=== PATIENT | male | born 1980 | race Caucasian/White ===

== ENCOUNTER 2019-07-10 07:11 | Day surgery (SDC) | payer BC ==
[~2019-07-10 07:11] MED LIST: EPINEPHrine 1 MG/ML SDV SCH; Lactated Ringers 1,000 ML IV SCH; Lidocaine 1%/Sod Bicarbonate in NS 8.4% 1 ML Syringe IDERM PRN; Sodium Chloride 0.9% 10 ML Syringe FLUSH PRN
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
[2019-07-10] MEDS ORDERED: Ondansetron 4 MG/2 ML SDV ONE (07:51)
[2019-07-10] MEDS ORDERED: Rocuronium 50 MG/5 ML Vial ONE (07:51)
[2019-07-10] MEDS ORDERED: fentaNYL 250 MCG/5 ML SDV ONE ×2 (07:51→09:42)
[2019-07-10] MEDS ORDERED: Propofol 200 MG/20 ML SDV ONE (07:51)
[2019-07-10] MEDS ORDERED: Midazolam 1 MG/ML 2 ML SDV ONE (07:51)
[2019-07-10] MEDS ORDERED: Lidocaine 1% 4 ML ONE (07:52)
[2019-07-10] MEDS ORDERED: ceFAZolin 1 GM Vial ONE (07:52)
[2019-07-10] MEDS ORDERED: Bupivacaine 0.25% 10 ML SDV ONE (07:58)
[2019-07-10] MEDS ORDERED: EPINEPHrine 1 MG/ML 30 ML MDV IRR SCH (08:00)
[2019-07-10] MEDS ORDERED: Lactated Ringers 1,000 ML ONE (09:28)
[2019-07-10] MEDS ORDERED: HYDROmorphone 0.5 MG/0.5 ML Syringe ONE ×2 (09:40→09:41)
[2019-07-10] MEDS ORDERED: fentaNYL 100 MCG/2 ML SDV IVPUSH PRN (10:26)
--- NOTE | 2019-07-10 10:28 | PCM.POSTAN ---
POST ANESTHESIA ASSESSMENT - MENTAL STATUS Mental Status: Alert, Oriented - VITAL SIGNS Vital Signs: Last Vital Signs Temp 36.6 C 07/10/19 07:15 Pulse 62 07/10/19 07:15 Resp 16 07/10/19 07:15 BP 144/106 H 07/10/19 07:15 Pulse Ox 94 L 07/10/19 07:15 - RESPIRATORY Respiratory Status: Respiratory Rate WNL, Airway Patent, O2 Saturation Stable, Supplemental Oxygen - CARDIOVASCULAR CV Status: Pulse Rate WNL, Blood Pressure Stable - GASTROINTESTINAL GI Status: No Symptoms - PAIN Pain Score: 2 - POST OP HYDRATION Hydration Status: Adequate & Stable - OBSERVATIONS Free Text/Narrative:: no anesthesia complications noted
[2019-07-10] MEDS ORDERED: Loratadine 10 MG Tab PO ONE (10:45)
[2019-07-10] MEDS ORDERED: Acetaminophen/HYDROcodone 325-5 MG Tab PO PRN (11:02)
[2019-07-10 12:52] VITALS: BP 120/88; PULSE 62
--- NOTE | 2019-07-10 13:13 | PCM48HPAN ---
Post Anesthesia Note - EVALUATION WITHIN 48HRS OF ANESTHETIC Vital Signs in Normal Range: Yes Patient Participated in Evaluation: No (discharged ) Respiratory Function Stable: Yes Airway Patent: Yes Cardiovascular Function Stable: Yes Hydration Status Stable: Yes Pain Control Satisfactory: Yes Nausea and Vomiting Control Satisfactory: Yes Mental Status Recovered: Yes Vital Signs: Last Vital Signs Temp 98.3 F 07/10/19 12:00 Pulse 62 07/10/19 12:00 Resp 16 07/10/19 12:00 BP 120/88 07/10/19 12:00 Pulse Ox 92 L 07/10/19 12:00
--- NOTE | 2019-07-16 12:37 | PCM.OPNOTE ---
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
--- NOTE | 2019-07-16 13:45 | OR ---
DATE OF OPERATION: 07/10/2019 SURGEON: Matias Hernandez MD OPERATION PERFORMED: Right knee video arthroscopy with partial medial and lateral meniscectomy with partial synovectomy and chondroplasty of the patella. PREOPERATIVE DIAGNOSIS: Right knee medial and lateral meniscus tear. 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 ANESTHESIA: General LMA with local. ANESTHESIA PROVIDER: Jasiel Stevens. ASSISTANTS: Cari Pineda PA-C ESTIMATED BLOOD LOSS: Less than 5 mL. COMPLICATIONS: None. CONDITION: Stable. DESCRIPTION OF PROCEDURE: The patient was identified in the preop holding area. Proper site was marked and identified by the surgeon. The patient was taken back to the operative theater where, after adequate anesthesia, the patient's left lower extremity was placed in a well leg prescott. Right lower extremity had a nonsterile tourniquet applied, and it was placed in a C-clamp prescott. Foot of the bed was then lowered. Right lower extremity was then sterilely prepped and draped in the usual sterile fashion. OR time-out was performed. The patient received 2 g IV Ancef. The right lower extremity was then exsanguinated. Tourniquet was insufflated to 250 mmHg. Standard anterolateral portal incision was made. Scope trocar was introduced. The patient was noted to have grade 2/3 chondromalacia of the patella with loose fragment on the lateral facet. It was noted to have significant fat pad hypertrophy with synovitis and a plica on the medial side. Attention was turned to the medial compartment. With the use of a spinal needle, anteromedial portal was then created. The patient was noted to have a degenerative tear of the posterior 3rd horn of the medial meniscus with an undersurface tear. The undersurface portion was brought back to a stable rim. The root was found to be intact, and a partial medial meniscectomy was performed back to the stable rim. The patient was noted to have grade 2/3 chondromalacia, especially of the medial femoral condyle near the posterior portion. Attention was turned to the notch. The ACL was noted to be stretched and incompetent in the notch. Lateral meniscus showed a complete avulsion and tear with degenerative changes and fraying of the entire posterior 3rd of the lateral meniscus. A partial lateral meniscectomy of the posterior 3rd was then done. He also was noted to have grade 2 chondromalacia with changes of the lateral compartment. A partial synovectomy was then performed of the fat pad and the plica, and a chondroplasty was performed of the patella back to a stable rim. Excess saline was drained from the knee. 3-0 nylon suture was used for closure of the skin. The patient had a sterile soft dressing applied and was sent to the PACU in stable condition. DYLAN /[id number]
== END 2019-07-10 12:16 | disposition home or self-care (01) ==
LOC: JD.SDS 07:11
PROVIDERS: ATTEND Orthopaedic Surgery
DX: S83.281A Other tear of lateral meniscus, current injury, right knee, initial encounter (principal); S83.241A Other tear of medial meniscus, current injury, right knee, initial encounter; M67.51 Plica syndrome, right knee; M25.861 Other specified joint disorders, right knee; E66.9 Obesity, unspecified; F17.210 Nicotine dependence, cigarettes, uncomplicated; K21.9 Gastro-esophageal reflux disease without esophagitis; G47.33 Obstructive sleep apnea (adult) (pediatric); Z88.1 Allergy status to other antibiotic agents; Z79.899 Other long term (current) drug therapy; Z68.39 Body mass index [BMI] 39.0-39.9, adult; Z99.89 Dependence on other enabling machines and devices; X58.XXXA Exposure to other specified factors, initial encounter
CPT/HCPCS: 29880; 87641; A9270; J0690; J1170; J2001; J2250; J2405; J2704; J3010; J3490; J7120; 01400

== ENCOUNTER 2020-02-16 06:07 | Day surgery (SDC) | payer BC ==
[~2020-02-16 06:07] MED LIST changes: +Acetaminophen 325 MG Tab PO SCH; -EPINEPHrine 1 MG/ML SDV SCH; +Pregabalin 25 MG Cap PO SCH; +oxyCODONE ER 10 MG TAB.ER PO SCH
[2020-02-16] MEDS ORDERED: Ketamine 500 mg/10 ML MDV ONE (06:48)
[2020-02-16] MEDS ORDERED: Ketorolac 30 MG/ML SDV ONE (06:48)
[2020-02-16] MEDS ORDERED: Lidocaine 1% 4 ML ONE (06:48)
[2020-02-16] MEDS ORDERED: fentaNYL 100 MCG/2 ML SDV ONE (06:48)
[2020-02-16] MEDS ORDERED: Midazolam 1 MG/ML 2 ML SDV ONE (06:48)
[2020-02-16] MEDS ORDERED: Ondansetron 4 MG/2 ML SDV ONE (06:48)
[2020-02-16] MEDS ORDERED: Propofol 200 MG/20 ML SDV ONE ×3 (06:48→08:27)
[2020-02-16] MEDS ORDERED: Dexamethasone 4 MG/ML 5 ML MDV ONE (06:48)
[2020-02-16] MEDS ORDERED: ceFAZolin 1 GM Vial ONE (06:55)
[2020-02-16] MEDS ORDERED: diphenhydrAMINE 50 MG/ML SDV ONE (07:30)
[2020-02-16] MEDS: Bupivacaine 0.25% 10 ML SDV ONE ×2 (08:00→08:26)
[2020-02-16] MEDS: Morphine 8 MG, EPINEPHrine 0.3 MG, Cefuroxime 750 MG, Ketorolac 30 MG, Sodium Chloride ... PRN ×10 (08:01→08:27)
[2020-02-16] MEDS: Vancomycin 1 GM SDV ONE ×2 (08:05→08:35)
--- NOTE | 2020-02-16 08:36 | PCM.PREANE ---
Preanesthetic Assessment - Procedure Proposed Procedure: Right Total Knee Arthroplasty - Anesthesia/Transfusion/Family Hx Anesthesia History: Prior Anesthesia Without Reaction Family History of Anesthesia Reaction: No Transfusion History: No Prior Transfusion(s) - Review of Systems General: No Symptoms Pulmonary: Other (Sleep Apnea with CPAP use. ) Cardiovascular: No Symptoms Gastrointestinal: Other (GERD, on prilosec, controlled. ) Neurological: Pre-Existing Deficit (Previousl Disc herniation with discectomy, L5-S1, residule left leg numbness, left side sciatica.) Other: Reports: None (Obesity, BMI 39.45, elevated liver enzymes, ETOH 1-2 per night. ) - Physical Assessment NPO Status Date: 02/15/20 NPO Status Time: 19:00 Vital Signs: Last Vital Signs Temp 35.9 C L 02/16/20 06:10 Pulse 65 02/16/20 06:10 Resp 16 02/16/20 06:10 BP 139/93 H 02/16/20 06:10 Pulse Ox 98 02/16/20 06:10 Height: 1.88 m Weight: 132.903 kg ASA Class: 3 Mental Status: Alert & Oriented x3 Airway Class: Mallampati = 2 Dentition: Reports: Normal Dentition Thyro-Mental Finger Breadths: 3 Mouth Opening Finger Breadths: 3 ROM/Head Extension: Full Lungs: Clear to Auscultation, Normal Respiratory Effort Cardiovascular: Regular Rate, Regular Rhythm - Allergies Allergies/Adverse Reactions: Allergies Allergy/AdvReac Type Severity Reaction Status Date / Time amoxicillin [From Augmentin] Allergy Diarrhea Verified 02/16/20 07:13 clavulanic acid Allergy Diarrhea Verified 02/16/20 07:13 [From Augmentin] morphine Allergy Itching Verified 02/16/20 07:13 - Anesthesia Plan Pre-Op Medication Ordered: Anxiolytic - Acknowledgements Anesthesia Type Planned: Spinal Pt an Appropriate Candidate for the Planned Anesthesia: Yes Alternatives and Risks of Anesthesia Discussed w Pt/Guardian: Yes Pt/Guardian Understands and Agrees with Anesthesia Plan: Yes PreAnesthesia Questionnaire HEENT History: Reports: Allergic Rhinitis, Sinusitis Cardiovascular History: Reports: None Respiratory History: Reports: Sleep Apnea, Other (See Below) Other Respiratory History: paroxysmal nocturnal dypsnea, acute bronchitis Gastrointestinal History: Reports: GERD, Other (See Below) Other Gastrointestinal History: elevated LFTs Genitourinary History: Reports: Other (See Below) Other Genitourinary History: elevated creatinine 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 Musculoskeletal History: Reports: Other (See Below) Other Musculoskeletal History: bilateral knee surgery, r wrist surgery Neurological History: Reports: Other (See Below) Other Neuro History: left foot numbness, low back surgery, lumbar discectomy Psychiatric History: Reports: None Endocrine/Metabolic History: Reports: None Hematologic History: Reports: Other (See Below) Other Hematologic History: leukocytosis Immunologic History: Reports: None Oncologic (Cancer) History: Reports: None Dermatologic History: Reports: Other (See Below) Other Dermatologic History: actinic keratosis - Past Surgical History Head Surgeries/Procedures: Reports: None HEENT Surgical History: Reports: Oral Surgery, Tonsillectomy Respiratory Surgical History: Reports: None GI Surgical History: Reports: EGD Female Surgical History: Reports: None Male Surgical History: Reports: None Endocrine Surgical History: Reports: None Neurological Surgical History: Reports: None Musculoskeletal Surgical History: Reports: Other (See Below) Other Musculoskeletal Surgeries/Procedures:: knee surgery, wrist surgery Oncologic Surgical History: Reports: None - SUBSTANCE USE Tobacco Use Status *Q: Former Tobacco User Tobacco Use Within Last Twelve Months: Cigarettes Days Per Week of Alcohol Use: 1 Number of Drinks Per Day: 6 Total Drinks Per Week: 6 Recreational Drug Use History: No - HOME MEDS Home Medications: Home Meds Cyclobenzaprine [Flexeril] 10 mg PO TID PRN 07/09/19 [History] Omeprazole Magnesium [Prilosec Otc] 20 mg PO DAILY 07/09/19 [History] Apixaban [Eliquis] 2.5 mg PO BID #28 tablet 02/16/20 [Rx] Aspirin [Aspirin EC] 325 mg PO BID #60 tab 02/16/20 [Rx] Cyclobenzaprine [Flexeril] 10 mg PO BID PRN #20 tab 02/16/20 [Rx] oxyCODONE 5 - 10 mg PO Q4H PRN #60 tab 02/16/20 [Rx] - CURRENT (IN HOUSE) MEDS Current Meds: Current Medications Acetaminophen (Tylenol) 975 mg PO ONETIME GOYO Stop: 02/16/20 16:00 Last Admin: 02/16/20 06:21 Dose: 975 mg Documented by: Morphine Sulfate 8 mg/Epinephrine HCl 0.3 mg/Cefuroxime Sodium 750 mg/Ketorolac Tromethamine 30 mg/Sodium Chloride 7.9 ml 0 mg .XX ASDIRECTED PRN PRN Reason: Pain Stop: 02/16/20 12:00 Last Admin: 02/16/20 08:01 Dose: 788.3 mg Documented by: Lactated Ringer's (Ringers, Lactated) 1,000 mls @ 125 mls/hr IV ASDIRECTED GOYO Stop: 02/16/20 23:00 Last Admin: 02/16/20 07:14 Dose: 125 mls/hr Documented by: Lidocaine/Sodium Bicarbonate (Buffered Lidocaine 1% In Ns 8.4%) 0.25 ml IDERM ONETIME PRN PRN Reason: Prior to IV Start Stop: 02/16/20 18:00 Last Admin: 02/16/20 07:14 Dose: 0.25 ml Documented by: Oxycodone HCl (Oxycontin) 10 mg PO ONETIME GOYO Stop: 02/16/20 16:00 Last Admin: 02/16/20 06:21 Dose: 10 mg Documented by: Pregabalin (Lyrica) 50 mg PO ONETIME GOYO Stop: 02/16/20 16:00 Last Admin: 02/16/20 06:21 Dose: 50 mg Documented by: Sodium Chloride (Saline Flush) 10 ml FLUSH ASDIRECTED PRN PRN Reason: Keep Vein Open Stop: 02/16/20 18:00 Discontinued Medications Bupivacaine HCl (Sensorcaine-Mpf 0.25%) Confirm Administered Dose 30 ml .ROUTE .STK-MED ONE Stop: 02/16/20 06:31 Last Admin: 02/16/20 08:00 Dose: 30 ml Documented by: Cefazolin Sodium (Ancef) Confirm Administered Dose 3 gm .ROUTE .STK-MED ONE Stop: 02/16/20 06:56 Dexamethasone (Dexamethasone) Confirm Administered Dose 20 mg .ROUTE .STK-MED ONE Stop: 02/16/20 06:49 Diphenhydramine HCl (Benadryl) Confirm Administered Dose 50 mg .ROUTE .STK-MED ONE Stop: 02/16/20 07:31 Fentanyl (Sublimaze) Confirm Administered Dose 100 mcg .ROUTE .STK-MED ONE Stop: 02/16/20 06:49 Glycopyrrolate (Robinul) Confirm Administered Dose 0.4 mg .ROUTE .STK-MED ONE Stop: 02/16/20 07:43 Lidocaine HCl (Xylocaine-Mpf 1%) Confirm Administered Dose 4 mls @ as directed .ROUTE .STK-MED ONE Stop: 02/16/20 06:49 Ketamine HCl (Ketalar) Confirm Administered Dose 500 mg .ROUTE .STK-MED ONE Stop: 02/16/20 06:49 Ketorolac Tromethamine (Toradol) Confirm Administered Dose 30 mg .ROUTE .STK-MED ONE Stop: 02/16/20 06:49 Midazolam HCl (Versed 1 Mg/Ml) Confirm Administered Dose 2 mg .ROUTE .STK-MED ONE Stop: 02/16/20 06:49 Ondansetron HCl (Zofran) Confirm Administered Dose 4 mg .ROUTE .STK-MED ONE Stop: 02/16/20 06:49 Propofol (Diprivan 20 Ml) Confirm Administered Dose 600 mg .ROUTE .STK-MED ONE Stop: 02/16/20 06:49 Propofol (Diprivan 20 Ml) Confirm Administered Dose 600 mg .ROUTE .STK-MED ONE Stop: 02/16/20 08:01 Propofol (Diprivan 20 Ml) Confirm Administered Dose 200 mg .ROUTE .STK-MED ONE Stop: 02/16/20 08:28 Tranexamic Acid (Cyklokapron) Confirm Administered Dose 1,000 mg .ROUTE .STK-MED ONE Stop: 02/16/20 06:31 Last Admin: 02/16/20 08:01 Dose: 1,000 mg Documented by: Vancomycin HCl (Vancomycin) Confirm Administered Dose 1 gm .ROUTE .STK-MED ONE Stop: 02/16/20 06:31 Last Admin: 02/16/20 08:05 Dose: 1 gm Documented by:
[2020-02-16] MEDS ORDERED: fentaNYL 100 MCG/2 ML SDV IVPUSH PRN (08:38)
[2020-02-16] MEDS ORDERED: Ondansetron 4 MG/2 ML SDV IVPUSH PRN (08:38)
[2020-02-16] MEDS ORDERED: HYDROmorphone 0.5 MG/0.5 ML Syringe IVPUSH PRN (08:38)
--- NOTE | 2020-02-16 09:05 | PCM.POSTAN ---
POST ANESTHESIA ASSESSMENT - MENTAL STATUS Mental Status: Alert, Oriented - VITAL SIGNS Vital Signs: Last Vital Signs Temp 35.9 C L 02/16/20 06:10 Pulse 65 02/16/20 06:10 Resp 16 02/16/20 06:10 BP 139/93 H 02/16/20 06:10 Pulse Ox 98 02/16/20 06:10 132/70 100 20 96% 97.1F - RESPIRATORY Respiratory Status: Respiratory Rate WNL, Airway Patent, O2 Saturation Stable, Supplemental Oxygen - CARDIOVASCULAR CV Status: Pulse Rate WNL, Blood Pressure Stable - GASTROINTESTINAL GI Status: No Symptoms - PAIN Pain Score: 0 - POST OP HYDRATION Hydration Status: Adequate & Stable
[2020-02-16] MEDS ORDERED: EPINEPHrine 1 MG/ML SDV ONE (09:17)
[2020-02-16] MEDS ORDERED: Ropivacaine 0.5% 5 MG/ML 30 ML SDV ONE (09:18)
--- NOTE | 2020-02-16 09:42 | PCM.SN.2 ---
- Free Text/Narrative Note: Right selective femoral nerve block at the adductor canal for post-procedure pain control under US guidance requested by Dr. Hernandez. Date: 02/16/2020 Time Out: 924 Start: 924 End: 932 Chart reviewed. Consent signed. Questions answered. Appropriate monitors applied. Time out performed. Right mid-shaft femur identified with ultrasound, scanning medially of femur, the femoral artery in the adductor canal visualized, and the femoral nerve located laterally to the artery. The skin was prepped lateral to the ultrasound probe with chlorahexadine times two. The 21ga 4 insulated block needle was inserted under direct ultrasound guidance into the adductor canal. 25mL of 0.5% ropivacaine with 1:200,000 epinephrine was injected circumferentially around the nerve with intermittent negative aspiration noted. Patient tolerated the procedure well. Sterile technique noted along with sterile gloves, mask, and sterile probe cover. See picture on progress note and vital signs on nurses notes. Block completed in PACU. Flaco Posada CRNA
[2020-02-16] MEDS ORDERED: Cyclobenzaprine 10 MG Tab PO ONE (09:55)
[2020-02-16] MEDS ORDERED: oxyCODONE 5 MG Tab PO ONE (10:30)
[2020-02-16] MEDS ORDERED: Lactated Ringers 1,000 ML ONE (11:20)
--- NOTE | 2020-02-16 13:02 | PCM48HPAN ---
Post Anesthesia Note - EVALUATION WITHIN 48HRS OF ANESTHETIC Vital Signs in Normal Range: Yes Patient Participated in Evaluation: Yes Respiratory Function Stable: Yes Airway Patent: Yes Cardiovascular Function Stable: Yes Hydration Status Stable: Yes Pain Control Satisfactory: Yes Nausea and Vomiting Control Satisfactory: Yes Mental Status Recovered: Yes Vital Signs: Last Vital Signs Temp 36.1 C 02/16/20 12:01 Pulse 71 02/16/20 12:01 Resp 16 02/16/20 12:01 BP 151/95 H 02/16/20 12:01 Pulse Ox 93 L 02/16/20 12:01
[2020-02-16 15:15] VITALS: BP 123/79; PULSE 75
--- NOTE | 2020-02-16 15:23 | CR ---
PROCEDURE INFORMATION: Exam: XR Right Knee Exam date and time: 02/16/2020 9:13 AM Age: 39 years old Clinical indication: Device placement; joint replacement hardware TECHNIQUE: Imaging protocol: XR Right knee. Views: 1 or 2 views. COMPARISON: MR Knee wo Cont Rt 07/01/2019 1:39 PM FINDINGS: Bones/joints: Total knee replacement. . There is no evidence of acute fracture.There is no evidence of malalignment or dislocation. Soft tissues: Air in the soft tissues may indicate recent surgery or infection.. IMPRESSION: 1. Total knee replacement. . 2. Air in the soft tissues may indicate recent surgery or infection.. 3. There is no evidence of acute fracture.There is no evidence of malalignment or dislocation. Thank you for allowing us to participate in the care of your patient. Dictated and Authenticated by: Katey Cooney MD 02/16/2020 11:20 AM Central Time ([place] & [place]) [facility]
--- NOTE | 2020-03-01 08:27 | PCM.OPNOTE ---
- General Post-Op/Procedure Note Date of Surgery/Procedure: 02/16/20 Operative Procedure(s): right total knee arthroplasty Pre Op Diagnosis: right knee osteoarthrosis Post-Op Diagnosis: Same Anesthesia Technique: Local, MAC, Spinal Primary Surgeon: Matias Hernandez Anesthesia Provider: Sonia Posada [employer] Mining Machine Tender: Cari Pineda [employer] Machine Tender: Avril Garzon EBM[place]ka in mLs: 400 Complications: None Condition: Good Free Text/Narrative:: 7 femur 6 tibia 11mm 35x10
--- NOTE | 2020-03-01 09:03 | OR ---
DATE OF OPERATION: 02/16/2020 SURGEON: Matias Hernandez MD OPERATION PERFORMED: Right total knee arthroplasty. PREOPERATIVE DIAGNOSIS: Right knee osteoarthrosis. POSTOPERATIVE DIAGNOSIS: Right knee osteoarthrosis. ANESTHESIA: Local MAC with spinal. ANESTHESIA PROVIDER: Estrella Caldwell. CONCAVER: Cari Pineda PA-C and Avirl Garzon LPN. ESTIMATED BLOOD LOSS: 400 mL. COMPLICATIONS: None. CONDITION: Stable. IMPLANTS: 1. [place] size 7 CS femur. 2. [place] size 6 press-fit tibial base plate. 3. [place] size 6, 11 mm CS polyethylene insert. 4. [place] size 35 x 10 mm press-fit patella. DESCRIPTION OF PROCEDURE: The patient was identified in the preop holding area. Proper site was marked and identified by the surgeon. The patient was taken back to the operating theater. After adequate anesthesia, the patient's right lower extremity had a nonsterile tourniquet applied and it was sterilely prepped and draped in the usual sterile fashion. OR time-out was performed. The patient received 2 g IV Ancef. At this time, the right lower extremity was exsanguinated. Tourniquet was insufflated to 300 mmHg. Standard medial parapatellar incision was made. Medial parapatellar arthrotomy was created. Deep fibers of the MCL were raised and anterior fat pad was resected. At this time, attention was turned to the patella. Patella measured 25, it was resected to a 15 for 35 x 10 mm patella. Drill holes were then drilled and found to be in adequate position. The drill was then drilled in the distal femur and the intramedullary distal femoral cutting guide was then placed. 8 mm was resected off the distal femur and was found to be an adequate resection. Sizing guide was placed. It was found to be a size 7 CS femur that was shown on the implant record at the beginning of this dictation. The drill holes were drilled for the epicondylar axis using [place] line and epicondyles as reference. At this time, the 4-in-1 cutting block was placed. An anterior posterior and anterior and posterior chamfer cuts were then completed. Attention was turned to the tibia. The posterior medial lateral retractors were placed. The extramedullary tibial guide was placed. It was placed in the old footprint of the ACL. It was aligned with the center of the ankle and 0 degrees of slope, 9 mm was then resected off the unaffected side. There was found to be an acceptable reduction. At this time, posterior osteophytes were removed along with medial and lateral meniscus. A trial implant was placed with a correct sized tibia that was mentioned at the beginning of the dictation. A [place] size 6, 11 mm CS polyethylene insert was then placed. The patient's knee was brought through range of motion. The patella was tracking centrally and was stable to varus and valgus stress. Alignment was found to be roughly at 0 degrees. The tibia was stamped and drilled in proper rotation. The universal tibial base plate was impacted in place. Next, the [place] size 7 CS femur impacted into place and the [place] size 6, 11 mm CS polyethylene insert was placed. The patient's knee was brought into full extension. The patella was then press-fit in place at this time. Tourniquet was deflated. One liter Irricept solution was irrigated through the knee along with 1 L of pulse lavage irrigation with Ancef. Periarticular injection was then completed. The patient's knee was brought through a range of motion. Knee was found to be stable to varus valgus stress, the patella was tracking centrally with full range of motion. At this time, a #2 barbed suture was used for closure of the medial parapatellar arthrotomy. Topical tranexamic acid was placed. 2-0 Vicryl was used subcutaneously, Prineo was used for the skin. The patient tolerated the procedure well and was sent to the PACU in stable condition. MMODAL /[id number] [facility]
== END 2020-02-16 14:00 | disposition home or self-care (01) ==
LOC: JD.SDS 06:07
PROVIDERS: ATTEND Orthopaedic Surgery
DX: M17.11 Unilateral primary osteoarthritis, right knee (principal); F17.210 Nicotine dependence, cigarettes, uncomplicated; G89.29 Other chronic pain; K21.9 Gastro-esophageal reflux disease without esophagitis; G47.33 Obstructive sleep apnea (adult) (pediatric); G89.18 Other acute postprocedural pain; Z88.8 Allergy status to other drugs, medicaments and biological substances; Z79.899 Other long term (current) drug therapy; Z98.890 Other specified postprocedural states; Z88.1 Allergy status to other antibiotic agents; Z88.5 Allergy status to narcotic agent; Z79.82 Long term (current) use of aspirin
CPT/HCPCS: 27447; 73560; 97110; 97161; 97165; A9270; C1776; J0171; J0690; J0697; J1100; J1200; J1885; J2001; J2250; J2270; J2405; J2704; J2795; J3010; J3370; J3490; J7120; 01402; 64450

== ENCOUNTER 2020-04-09 10:48 | Day surgery (SDC) | payer BC ==
[~2020-04-09 10:48] MED LIST changes: -Acetaminophen 325 MG Tab PO SCH; +Dexamethasone 4 MG/ML 5 ML MDV ONE; +Ketorolac 30 MG/ML SDV ONE; +Midazolam 1 MG/ML 2 ML SDV ONE; +Ondansetron 4 MG/2 ML SDV ONE; -Pregabalin 25 MG Cap PO SCH; +Propofol 200 MG/20 ML SDV ONE; +fentaNYL 100 MCG/2 ML SDV ONE; -oxyCODONE ER 10 MG TAB.ER PO SCH
--- NOTE | 2020-04-09 11:49 | PCM.PREANE ---
Preanesthetic Assessment - Procedure Proposed Procedure: Right knee manipulation - Anesthesia/Transfusion/Family Hx Anesthesia History: Prior Anesthesia Without Reaction Transfusion History: No Prior Transfusion(s) Intubation History: Unknown - Review of Systems General: No Symptoms Pulmonary: No Symptoms Cardiovascular: No Symptoms Gastrointestinal: No Symptoms Neurological: No Symptoms Other: Reports: None - Physical Assessment NPO Status Date: 04/08/20 NPO Status Time: 18:00 Height: 1.88 m Weight: 132.7 kg ASA Class: 3 Mental Status: Alert & Oriented x3 Airway Class: Mallampati = 2 Dentition: Reports: Normal Dentition Thyro-Mental Finger Breadths: 3 Mouth Opening Finger Breadths: 4 ROM/Head Extension: Full Lungs: Clear to Auscultation, Normal Respiratory Effort Cardiovascular: Regular Rate, Regular Rhythm - Allergies Allergies/Adverse Reactions: Allergies Allergy/AdvReac Type Severity Reaction Status Date / Time amoxicillin [From Augmentin] Allergy Diarrhea Verified 04/08/20 14:11 clavulanic acid Allergy Diarrhea Verified 04/08/20 14:11 [From Augmentin] morphine Allergy Itching Verified 04/08/20 14:11 - Blood Blood Available: No - Anesthesia Plan Pre-Op Medication Ordered: None - Acknowledgements Anesthesia Type Planned: MAC Pt an Appropriate Candidate for the Planned Anesthesia: Yes Alternatives and Risks of Anesthesia Discussed w Pt/Guardian: Yes Pt/Guardian Understands and Agrees with Anesthesia Plan: Yes PreAnesthesia Questionnaire HEENT History: Reports: Allergic Rhinitis, Sinusitis Cardiovascular History: Reports: None Respiratory History: Reports: Sleep Apnea, Other (See Below) Other Respiratory History: paroxysmal nocturnal dypsnea, acute bronchitis Gastrointestinal History: Reports: GERD, Other (See Below) Other Gastrointestinal History: elevated LFTs Genitourinary History: Reports: Other (See Below) Other Genitourinary History: elevated creatinine CHAIR FINISHER History: Reports: None Musculoskeletal History: Reports: Other (See Below) Other Musculoskeletal History: bilateral knee surgery, r wrist surgery Neurological History: Reports: Other (See Below) Other Neuro History: left foot numbness, low back surgery, lumbar discectomy Psychiatric History: Reports: None Endocrine/Metabolic History: Reports: None Hematologic History: Reports: Other (See Below) Other Hematologic History: leukocytosis Immunologic History: Reports: None Oncologic (Cancer) History: Reports: None Dermatologic History: Reports: Other (See Below) Other Dermatologic History: actinic keratosis - Past Surgical History Head Surgeries/Procedures: Reports: None HEENT Surgical History: Reports: Oral Surgery, Tonsillectomy Respiratory Surgical History: Reports: None GI Surgical History: Reports: EGD Female Surgical History: Reports: None Male Surgical History: Reports: None Endocrine Surgical History: Reports: None Neurological Surgical History: Reports: None Musculoskeletal Surgical History: Reports: Other (See Below) Other Musculoskeletal Surgeries/Procedures:: knee surgery, wrist surgery Oncologic Surgical History: Reports: None - SUBSTANCE USE Tobacco Use Status *Q: Current Every Day Tobacco User Tobacco Use Within Last Twelve Months: Smokeless Tobacco Recreational Drug Use History: No - HOME MEDS Home Medications: Home Meds Omeprazole Magnesium [Prilosec Otc] 20 mg PO DAILY 07/09/19 [History] Cyclobenzaprine [Flexeril] 10 mg PO BID PRN #20 tab 02/16/20 [Rx] oxyCODONE 5 - 10 mg PO Q4H PRN #60 tab 02/16/20 [Rx] - CURRENT (IN HOUSE) MEDS Current Meds: Current Medications Lactated Ringer's (Ringers, Lactated) 1,000 mls @ 125 mls/hr IV ASDIRECTED GOYO Stop: 04/09/20 23:00 Lidocaine/Sodium Bicarbonate (Buffered Lidocaine 1% In Ns 8.4%) 0.25 ml IDERM ONETIME PRN PRN Reason: Prior to IV Start Stop: 04/09/20 18:00 Sodium Chloride (Saline Flush) 10 ml FLUSH ASDIRECTED PRN PRN Reason: Keep Vein Open Stop: 04/09/20 18:00 Discontinued Medications Dexamethasone (Dexamethasone) Confirm Administered Dose 20 mg .ROUTE .STK-MED ONE Stop: 04/09/20 09:48 Fentanyl (Sublimaze) Confirm Administered Dose 100 mcg .ROUTE .STK-MED ONE Stop: 04/09/20 09:47 Ketorolac Tromethamine (Toradol) Confirm Administered Dose 30 mg .ROUTE .STK-MED ONE Stop: 04/09/20 09:48 Midazolam HCl (Versed 1 Mg/Ml) Confirm Administered Dose 2 mg .ROUTE .STK-MED ONE Stop: 04/09/20 09:46 Ondansetron HCl (Zofran) Confirm Administered Dose 4 mg .ROUTE .STK-MED ONE Stop: 04/09/20 09:48 Propofol (Diprivan 20 Ml) Confirm Administered Dose 200 mg .ROUTE .[facility] ONE Stop: 04/09/20 09:52
[2020-04-09] MEDS ORDERED: Propofol 200 MG/20 ML SDV ONE (12:01)
--- NOTE | 2020-04-09 12:35 | PCM48HPAN ---
Post Anesthesia Note - EVALUATION WITHIN 48HRS OF ANESTHETIC Vital Signs in Normal Range: Yes Patient Participated in Evaluation: Yes Respiratory Function Stable: Yes Airway Patent: Yes Cardiovascular Function Stable: Yes Hydration Status Stable: Yes Pain Control Satisfactory: Yes Nausea and Vomiting Control Satisfactory: Yes Mental Status Recovered: Yes Vital Signs: Last Vital Signs 1234 132/82 92% 79 16 98.4 Temp 36.1 C 04/09/20 11:00 Pulse 80 04/09/20 11:00 Resp 16 04/09/20 11:00 BP 128/85 04/09/20 11:00 Pulse Ox 96 04/09/20 11:00
[2020-04-09 12:57] VITALS: BP 124/63; PULSE 71
--- NOTE | 2020-04-10 14:06 | CR ---
Right knee: Single lateral view of the right knee was obtained utilizing C-arm device. Knee prosthesis is noted. Components are aligned. Fluoroscopy time is given as 3.1 seconds. Impression: 1. Procedural study as noted above. Diagnostic code #2
--- NOTE | 2020-04-26 14:47 | PCM.OPNOTE ---
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
--- NOTE | 2020-04-26 15:14 | OR ---
DATE OF OPERATION: 04/09/2020 SURGEON: Matias Hernandez MD OPERATION PERFORMED: Manipulation under anesthesia of right total knee arthroplasty. PREOPERATIVE DIAGNOSIS: Right total knee arthroplasty, arthrofibrosis. POSTOPERATIVE DIAGNOSIS: Right total knee arthroplasty, arthrofibrosis. ANESTHESIA: MAC sedation. ANESTHESIA PROVIDER: Meenu Fox. ESTIMATED BLOOD LOSS: Not applicable. COMPLICATIONS: None. CONDITION: Stable. DESCRIPTION OF PROCEDURE: The patient was identified in the preoperative holding area. Proper site was marked and identified by the surgeon. The patient was taken back to the operative theater, where after adequate anesthesia, OR time-out was performed. At this time, pre-manipulation motion was measured at 2 to roughly 95 degrees with a hard stop. We then measured the contralateral side. He was able to get 125. We then manipulated the right total knee and was able to get it to the same amount of flexion as contralateral side up to 125 degrees. Pictures were taken at this time. The patient was awakened and sent to the PACU in stable condition and tolerated the procedure well. MMODAL /[id number]
== END 2020-04-09 13:20 | disposition home or self-care (01) ==
LOC: JD.SDS 10:48
PROVIDERS: ATTEND Orthopaedic Surgery
DX: T84.82XA Fibrosis due to internal orthopedic prosthetic devices, implants and grafts, initial encounter (principal); G89.29 Other chronic pain; K21.9 Gastro-esophageal reflux disease without esophagitis; G47.33 Obstructive sleep apnea (adult) (pediatric); R00.0 Tachycardia, unspecified; F17.290 Nicotine dependence, other tobacco product, uncomplicated; Z96.651 Presence of right artificial knee joint; Z88.8 Allergy status to other drugs, medicaments and biological substances; Z79.899 Other long term (current) drug therapy; Z98.890 Other specified postprocedural states; Z88.1 Allergy status to other antibiotic agents; Z88.5 Allergy status to narcotic agent
CPT/HCPCS: 27570; 76000; J1100; J1885; J2250; J2405; J2704; J3010; J7120; 01380